=== PATIENT | female | born 1985 | race Caucasian/White ===

== ENCOUNTER 2017-06-23 11:57 | Emergency (ER) | payer SELFPAY ==
[2017-06-23 12:10] VITALS: BP 125/63
--- NOTE | 2017-06-26 09:01 | EDM.PDOC ---
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 She states she is 9 weeks , has not yet seen OB provider. She states LMP was 04/17/17. She states 2 living children, ages 4 and 2, and 2 past miscarriages. She states she has needed to receive Rhogam in the past. She denies fever, chills, N/V/D. Vaginal spotting is minimal, as she noticed on toilet paper when wiping. She denies passing any heavy bleeding or clots. Pt denies any abdominal cramping. Onset: Today, Sudden - Related Data Allergies Allergy/AdvReac Type Severity Reaction Status Date / Time No Known Allergies Allergy Verified 10/12/14 07:34 Home Meds: Home Meds Ferrous Sulfate [Iron] 1 tab PO DAILY 10/12/14 [History] Vit #108/Iron/FA [ One Tablet] 1 tab PO DAILY 10/12/14 [History ] Social & Family History - Tobacco Use Smoking Status *Q: Never Smoker Second Hand Smoke Exposure: No - Alcohol Use Days Per Week of Alcohol Use: 0 - Recreational Drug Use Recreational Drug Use: No ED ROS GENERAL - Review of Systems Review Of Systems: ROS reveals no pertinent complaints other than HPI. ED EXAM - Physical Exam Exam: See Below Exam Limited By: No Limitations General Appearance: Alert, WD/WN, No Apparent Distress Eye Exam: Bilateral Eye: Normal Inspection Ears: Normal External Exam, Hearing Grossly Normal Nose: Normal Inspection Throat/Mouth: Normal Inspection, Normal Voice, No Airway Compromise Head: Atraumatic, Normocephalic Neck: Normal Inspection, Supple, Non-Tender, Full Range of Motion Respiratory/Chest: No Respiratory Distress, Lungs Clear, Normal Breath Sounds, No Accessory Muscle Use, Chest Non-Tender Cardiovascular: Normal Peripheral Pulses, Regular Rate, Rhythm, No Edema, No Gallop, No JVD, No Murmur, No Rub GI/Abdominal Exam: Normal Bowel Sounds, Soft, Non-Tender, No Organomegaly, No Distention, No Abnormal Bruit, No Mass Rectal Exam: Deferred Back Exam: Normal Inspection, Full Range of Motion Extremities: Normal Inspection, Normal Range of Motion, Non-Tender, No Pedal Edema, Normal Capillary Refill Neurological: Alert, Oriented, Normal Cognition, Normal Gait, No Motor/Sensory Deficits Psychiatric: Normal Affect, Normal Mood Skin Exam: Warm, Dry, Intact, Normal Color, No Rash Lymphatic: No Adenopathy Course - Vital Signs Last Recorded V/S: Last Vital Signs Temp 97.8 F 06/23/17 12:09 Pulse 72 06/23/17 12:09 Resp 18 06/23/17 12:09 BP 125/63 06/23/17 12:09 Pulse Ox 100 06/23/17 12:09 - Orders/Labs/Meds Orders: Active Orders 24 hr Category Date Time Status OB Ltd 1 or More Fetus [US] Urgent Exams 06/23/17 13:17 Ordered RH IMMUNE GLOBULIN [BBK] Stat Lab 06/23/17 12:46 Results RHOGAM, MISCARRIAGE [RHIG WORKUP, MISCARRIAGE] [BBK] Lab 06/23/17 12:46 Results Stat Labs: Laboratory Tests 06/23/17 06/23/17 06/23/17 Range/Units 12:12 12:12 12:46 WBC 6.7 (5.0-10.0) 10^3/uL RBC 4.21 (4.2-5.4) 10^6/uL Hgb 12.7 (12.0-16.0) g/dL Hct 37.1 (37.0-47.0) % MCV 88.1 D (80-100) fL MCH 30.2 (27.0-34.0) pg MCHC 34.2 (33.0-35.0) g/dL Plt Count 290 D (150-450) 10^3/uL Neut % (Auto) 69.3 (42.2-75.2) % Lymph % (Auto) 23.3 (20.5-50.1) % Norton % (Auto) 6.4 (2-8) % Eos % (Auto) 0.9 L (1.0-3.0) % Baso % (Auto) 0.1 (0.0-1.0) % HCG, Quant (0-25) mIU/ml Beta HCG, Quant mIU/ml Urine Color Yellow (YELLOW) Urine Appearance Clear (CLEAR) Urine pH 7.0 (5.0-9.0) Ur Specific [place] 1.010 (1.005-1.030) Urine Protein Negative (NEGATIVE) Urine Glucose (UA) Negative (NEGATIVE) Urine Ketones Negative (NEGATIVE) Urine Occult Blood Small H (NEGATIVE) Urine Nitrite Negative (NEGATIVE) Urine Bilirubin Negative (NEGATIVE) Urine Urobilinogen 0.2 (0.2-1.0) mg/dL Ur Leukocyte Esterase Negative (NEGATIVE) Urine RBC 0-5 /HPF Urine WBC 0-5 (0-5/HPF) /HPF Ur Epithelial Cells Rare /HPF Amorphous Sediment Rare (0/HPF) /HPF Urine Bacteria Few (0-FEW/HPF) /HPF Urine HCG, Qual Positive Blood Type (Referred) Rhogam Indicated 06/23/17 06/23/17 Range/Units 12:46 12:46 WBC (5.0-10.0) 10^3/uL RBC (4.2-5.4) 10^6/uL Hgb (12.0-16.0) g/dL Hct (37.0-47.0) % MCV (80-100) fL MCH (27.0-34.0) pg MCHC (33.0-35.0) g/dL Plt Count (150-450) 10^3/uL Neut % (Auto) (42.2-75.2) % Lymph % (Auto) (20.5-50.1) % Norton % (Auto) (2-8) % Eos % (Auto) (1.0-3.0) % Baso % (Auto) (0.0-1.0) % HCG, Quant > 1371 H (0-25) mIU/ml Beta HCG, Quant 01684 mIU/ml Urine Color (YELLOW) Urine Appearance (CLEAR) Urine pH (5.0-9.0) Ur Specific [place] (1.005-1.030) Urine Protein (NEGATIVE) Urine Glucose (UA) (NEGATIVE) Urine Ketones (NEGATIVE) Urine Occult Blood (NEGATIVE) Urine Nitrite (NEGATIVE) Urine Bilirubin (NEGATIVE) Urine Urobilinogen (0.2-1.0) mg/dL Ur Leukocyte Esterase (NEGATIVE) Urine RBC /HPF Urine WBC (0-5/HPF) /HPF Ur Epithelial Cells /HPF Amorphous Sediment (0/HPF) /HPF Urine Bacteria (0-FEW/HPF) /HPF Urine HCG, Qual Blood Type (Referred) A neg Rhogam Indicated Yes Departure - Departure Time of Disposition: 13:57 Disposition: Home, Self-Care 01 Condition: Good Clinical Impression: Incomplete - Discharge Information Instructions: Miscarriage, [id number] Forms: ED Department Discharge Additional Instructions: Follow up with your OB provider Return to the ER if bleeding increases, soaking pads, etc. Return to the ER if fever or any evidence of infection, abdominal pain/ cramping. Drink plenty of water. Rest. - My Orders Last 24 Hours: My Active Orders 06/23/17 12:46 RH IMMUNE GLOBULIN [BBK] Stat RHOGAM, MISCARRIAGE [RHIG WORKUP, MISCARRIAGE] [BBK] Stat 06/23/17 13:17 OB Ltd 1 or More Fetus [US] Urgent - Assessment/Plan Last 24 Hours: My Active Orders 06/23/17 12:46 RH IMMUNE GLOBULIN [BBK] Stat RHOGAM, MISCARRIAGE [RHIG WORKUP, MISCARRIAGE] [BBK] Stat 06/23/17 13:17 OB Ltd 1 or More Fetus [US] Urgent I have read and agree with the documentation that has been completed regarding this visit. By signing this record, I attest that the documentation was completed in my physical presence and is an accurate record of the encounter.
== END 2017-06-23 14:15 | disposition home or self-care (01) ==
LOC: DL.ED 11:57
DX: O03.4 Incomplete spontaneous abortion without complication (principal); Z3A.09 9 weeks gestation of pregnancy; Z79.899 Other long term (current) drug therapy
CPT/HCPCS: 36415; 76815; 76817; 81001; 81025; 84702; 85025; 96372; 99284; J2790; 99283

== ENCOUNTER 2020-06-16 07:07 | Inpatient (IN) | payer SELFPAY ==
--- NOTE | 2020-06-16 01:00 | PCM.LDHP ---
L&D History of Present Illness - General Date of Service: 06/16/20 (Admit H&P) Admit Problem/Dx: Patient Status Order with Admit Dx/Problem 06/16/20 08:00 Patient Status [ADT] Routine Admission Diagnosis/Problem Admission Diagnosis/Problem High risk 06/16/20 00:50 high risk at term with ripening cervix presenting for induction. AMA hx HEELP/gestational thrombocytopenia recurrent SABs Source of Information: Patient, Family, Old Records, Provider, Other (EPIC notes/ episode and notes. ) History Limitations: Reports: No Limitations - History of Present Illness Introduction:: Carly is a delightful 35yo WF @ 38w6d gestation who presents today for induction due to high risk and ripening cervix. She is AMA, hx of gestational thrombocytopenia/HELLP syndrome, thyroid dz, anemia, recurrent SABs X4, baby measuring 97% for weight on screening US. seen in clinic yesterday and induction scheduled. baby has been active. no bleeding or LOF no sx of pre-E. no sx of COVID and no known contacts or travel. see EPIC notes for further details. 3 prior vaginal deliveries. biggest baby 8 08/21# @ 40+3 4 prior SABs Location, : Reports: Uterus - Related Data Allergies/Adverse Reactions: Allergies Allergy/AdvReac Type Severity Reaction Status Date / Time No Known Allergies Allergy Verified 08/07/18 05:45 Home Medications: Home Meds Ferrous Sulfate [Iron] 1 tab PO DAILY 10/12/14 [History] Mv-Mn/Iron/FA/Herbal/Digestive [ One Tablet] 1 tab PO DAILY 10/12/14 [History] Levothyroxine [Sythroid] 100 mcg PO DAILY 08/07/18 [History] Past Medical History HEENT History: Reports: None Cardiovascular History: Reports: None Respiratory History: Reports: None Gastrointestinal History: Reports: None Genitourinary History: Reports: None DEAN OF BOYS History: Reports: , Spontaneous (has seen reproductive endocrinology in past re: recurrent SABs SAB X 4--no D&C, is A negative and received RhoGam. hmb) : 8 Para: 3 LMP (Approximate): Other OB/BYN History: Miscarriage x2 with 4 total losses including very early losses. hmb Musculoskeletal History: Reports: None Neurological History: Reports: None Psychiatric History: Reports: None Endocrine/Metabolic History: Reports: Hypothyroidism Hematologic History: Reports: None Oncologic (Cancer) History: Reports: None Dermatologic History: Reports: None Social & Family History - Family History Family Medical History: Noncontributory OBGYN: Reports: Recurrent Spontaneous - Tobacco Use Tobacco Use Status *Q: Never Tobacco User - Caffeine Use Caffeine Use: Reports: None - Recreational Drug Use Recreational Drug Use: No Drug Use in Last 12 Months: No - Sexual History Sexual History: Reports: Single Partner - Living Situation & Occupation Living situation: Reports: , with Spouse, 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 They have 2 daughters and a son. Expecting their fourth child. Another girl. [id number]) Occupation: Employed H&P Review of Systems - Review of Systems: Review Of Systems: Comprehensive ROS is negative, except as noted in HPI. (no sx of pre-E) L&D Exam - Exam Exam: See Below (obtained ACLR) - OB Specific Fundal Height In cm: 40 Movement: Active Heart Tones: Present Heart Tones per Min: 140 Presentation: Vertex Estimated Weight: 8 - Pablo Score Pablo Score Cervix Position: Midposition Pablo Score Consistency: Soft Pablo Score Effacement: 31-50% Pablo Score Dilation: 1-2 cm Pablo Score 's Station: -2 Pablo Score Total: 6 - Exam General: Alert, Oriented HEENT: Conjunctiva Clear, EACs Clear, EOMI, Hearing Intact, Nares Patent Neck: Supple, Trachea Midline Lungs: Clear to Auscultation, Normal Respiratory Effort Cardiovascular: Regular Rate, Regular Rhythm GI/Abdominal Exam: Normal Bowel Sounds, Soft, Non-Tender, No Abnormal Bruit, Pelvis Stable Rectal Exam: Normal Exam (external only), Deferred Genitourinary: Normal external exam, Normal bimanual exam, Normal speculum exam Back Exam: Normal Inspection, Full Range of Motion Extremities: Normal Inspection, Normal Range of Motion, Non-Tender, No Pedal Edema, Normal Capillary Refill Skin: Warm, Dry, Intact Psychiatric: Alert, Normal Affect, Normal Mood - Patient Data Result Diagrams: 06/16/20 09:12 - Problem List (1) High risk due to recurrent loss SNOMED Code(s): 06597414, 989483703 ICD Code: O26.20 - PREG CARE FOR PATIENT W RECURRENT PREG LOSS, UNSP TRIMESTER Status: Acute Current Visit: No (2) High risk , multigravida of advanced maternal age SNOMED Code(s): 489594482, 141102572 ICD Code: O09.529 - SUPERVISION OF ELDERLY MULTIGRAVIDA, UNSPECIFIED TRIMESTER Status: Acute Current Visit: No (3) High-risk SNOMED Code(s): 68391614 ICD Code: O09.90 - SUPERVISION OF HIGH RISK , UNSP, UNSP TRIMESTER Status: Acute Current Visit: No (4) AMA (advanced maternal age) multigravida 35+ SNOMED Code(s): 770498002 ICD Code: O09.529 - SUPERVISION OF ELDERLY MULTIGRAVIDA, UNSPECIFIED TRIMESTER Status: Acute Current Visit: No (5) Hypothyroid in , antepartum SNOMED Code(s): 092399723 ICD Code: O99.280 - ENDO, NUTRITIONAL AND METAB DISEASES COMP PREG, UNSP TRI; E03.9 - HYPOTHYROIDISM, UNSPECIFIED Status: Acute Current Visit: No (6) Anemia affecting eighth SNOMED Code(s): 58631190 ICD Code: O99.019 - ANEMIA COMPLICATING , UNSPECIFIED TRIMESTER; O09.40 - SUPERVISION OF W GRAND MULTIPARITY, UNSP TRIMESTER Status: Acute Current Visit: No (7) Blood type A- SNOMED Code(s): 145464649 ICD Code: Z67.11 - TYPE A BLOOD, RH NEGATIVE Status: Acute Current Visit: No (8) Group B Streptococcus not isolated SNOMED Code(s): 504956103 ICD Code: [id number] - Status: Acute Current Visit: No (9) History of recurrent miscarriages SNOMED Code(s): 195284596 ICD Code: N96 - RECURRENT LOSS Status: Acute Current Visit: No (10) Intrauterine SNOMED Code(s): 23664629 ICD Code: Z33.1 - STATE, INCIDENTAL Status: Acute Current Visit: No (11) Rubella immune SNOMED Code(s): 663710502 ICD Code: Z78.9 - OTHER SPECIFIED HEALTH STATUS Status: Acute Current Visit: No Problem List Initiated/Reviewed/Updated: Yes Orders Last 24hrs: Active Orders 24 hr Category Date Time Status Patient Status [ADT] Routine ADT 06/16/20 08:00 Ordered Communication Order [RC] ASDIRECTED Care 06/16/20 00:35 Ordered Communication Order [RC] ASDIRECTED Care 06/16/20 00:35 Ordered Communication Order [RC] ASDIRECTED Care 06/16/20 00:35 Ordered Communication Order [RC] ASDIRECTED Care 06/16/20 08:00 Ordered Communication Order [RC] ASDIRECTED Care 06/16/20 08:00 Ordered Communication Order [RC] ASDIRECTED Care 06/16/20 08:00 Ordered Heart Tones [RC] PER UNIT ROUTINE Care 06/16/20 00:35 Ordered Monitoring [RC] PER UNIT ROUTINE Care 06/16/20 08:00 Ordered Non Stress Test [RC] PER UNIT ROUTINE Care 06/16/20 08:00 Ordered Notify Provider Vital Signs OB [RC] ASDIRECTED Care 06/16/20 00:35 Ordered Notify Provider [RC] PRN Care 06/16/20 00:35 Ordered Notify Provider [RC] PRN Care 06/16/20 00:35 Ordered Notify Provider [RC] PRN Care 06/16/20 00:35 Ordered Notify Provider [RC] STAT Care 06/16/20 00:35 Ordered Peripheral IV Care [RC] . DIRECTED Care 06/16/20 08:00 Ordered Pump Management, Intrathecal [RC] ASDIRECTED Care 06/16/20 08:00 Ordered Up ad Olimpia [RC] ASDIRECTED Care 06/16/20 00:35 Ordered Up ad Olimpia [RC] PER UNIT ROUTINE Care 06/16/20 00:35 Ordered Vaginal Exam [RC] PRN Care 06/16/20 00:35 Ordered Vital Signs [RC] PER UNIT ROUTINE Care 06/16/20 00:35 Ordered CBC W/O DIFF,HEMOGRAM [HEME] Routine Lab 06/16/20 08:00 Ordered CORONAVIRUS COVID-19 PCR PHL Stat Lab 06/16/20 00:35 Ordered Acetaminophen [TylenoL] Med 06/16/20 08:00 Ordered 650 mg PO Q4H PRN Acetaminophen [TylenoL] Med 06/16/20 08:00 Ordered 650 mg PO Q4H PRN Carboprost Tromethamine [Hemabate DS] Med 06/16/20 08:00 Ordered 250 mcg IM ASDIRECTED PRN Lactated Ringers @ 125 MLS/HR(1000ml) Med 06/16/20 08:00 Ordered Lactated Ringers [Ringers, Lactated] 1,000 ml IV ASDIRECTED Lactated Ringers [Ringers, Lactated] 1,000 ml Med 06/16/20 08:00 Ordered IV BOLUS Lidocaine 1% [Xylocaine-MPF 1%] Med 06/16/20 08:00 Ordered 30 ml INJECT ASDIRECTED PRN Methylergonovine [Methergine] Med 06/16/20 08:00 Ordered 0.2 mg IM ASDIRECTED PRN Ondansetron [Zofran] Med 06/16/20 08:00 Ordered 4 mg IVPUSH Q4H PRN Oxytocin 30 Units in NS @ 2 MUNITS/MIN(500ml) Med 06/16/20 08:00 Ordered Oxytocin/Normal Saline [Pitocin in NS 30 UNIT/500 ML] 30 unit in 500 ml IV TITRATE Sodium Chloride 0.9% [Saline Flush] Med 06/16/20 08:00 Ordered 10 ml FLUSH ASDIRECTED PRN Tranexamic Acid [Cyklokapron] 1,000 mg Med 06/16/20 08:00 Ordered Sodium Chloride 0.9% [Normal Saline] 100 ml IV ONETIME miSOPROStoL [Cytotec] Med 06/16/20 08:00 Ordered 50 mcg VAG Q4H PRN miSOPROStoL [Cytotec] Med 06/16/20 08:00 Ordered 800 mcg RECTAL ASDIRECTED PRN Peripheral IV Insertion Adult [OM.PC] Urgent Oth 06/16/20 08:00 Ordered Saline Lock Insert [OM.PC] Routine Oth 06/16/20 00:35 Ordered Resuscitation Status Routine Resus Stat 06/16/20 00:34 Ordered Medication Orders Acetaminophen (Tylenol) 650 mg PO Q4H PRN PRN Reason: Pain (Mild 1-3) and fever Acetaminophen (Tylenol) 650 mg PO Q4H PRN PRN Reason: Pain/Fever Carboprost Tromethamine (Hemabate Ds) 250 mcg IM ASDIRECTED PRN PRN Reason: HEMORRHAGE Tranexamic Acid 1,000 mg/ (Sodium Chloride) 110 mls @ 660 mls/hr IV ONETIME PRN PRN Reason: Bleeding Oxytocin/Sodium Chloride (Pitocin In Ns 30 Unit/500 Ml) 30 unit in 500 mls @ 2 mls/hr IV TITRATE YOSVANY; Protocol Lactated Ringer's (Ringers, Lactated) 1,000 mls @ 999 mls/hr IV BOLUS ONE Stop: 06/16/20 09:00 Lactated Ringer's (Ringers, Lactated) 1,000 mls @ 125 mls/hr IV ASDIRECTED YOSVANY Lidocaine HCl (Xylocaine-Mpf 1%) 30 ml INJECT ASDIRECTED PRN PRN Reason: Perineal Repair Methylergonovine Maleate (Methergine) 0.2 mg IM ASDIRECTED PRN PRN Reason: Hemorrhage Misoprostol (Cytotec) 800 mcg RECTAL ASDIRECTED PRN PRN Reason: Hemorrhage Misoprostol (Cytotec) 50 mcg VAG Q4H PRN PRN Reason: cervical ripening Ondansetron HCl (Zofran) 4 mg IVPUSH Q4H PRN PRN Reason: Nausea/Vomiting Sodium Chloride (Saline Flush) 10 ml FLUSH ASDIRECTED PRN PRN Reason: Keep Vein Open Assessment/Plan Comment:: ASsessment: Carly is a delightful 35yo WF @ 38w6d presenting for induction of high risk at term with ripening cervix AMA 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 will have rapid Covid testing NST on admit CBC on admit. If COVID negative, PLT >100, NST reacitve and clinically stable, will place 50mcg Cytotec as discussed in detail @ ACLR yesterday. consider repeat Cytotec 50mcg in 4 hours, or pitocin if/when indicated. AROM when appropriate further management pending her clinical course in labor as discussed in clinic. all questions answered. Dr. Graham also present at discussion and for induction. Carly and Srikanth appear happy with care and plan. hmb COVID negative PLT 192 hgb 11.8 WBC 8.6 NST reactive/reassuring Codi placed 50mcg @ 934 without difficulty. see note. hmb
[2020-06-16] MEDS ORDERED: Lidocaine 1% 30 ML SDV INJECT PRN (08:00)
[2020-06-16] MEDS ORDERED: Sodium Chloride 0.9% 10 ML Syringe FLUSH PRN ×2 (08:00→18:44)
[2020-06-16] MEDS ORDERED: Ondansetron 4 MG/2 ML SDV IVPUSH PRN (08:00)
[2020-06-16] MEDS ORDERED: Tranexamic Acid 1,000 MG in Sodium Chloride 0.9% 100 ML IV PRN ×2 (08:00→18:44)
[2020-06-16] MEDS ORDERED: Misoprostol 400 MCG (4 X 100 MCG TAB) RECTAL PRN ×2 (08:00→18:44)
[2020-06-16] MEDS ORDERED: Lactated Ringers 1,000 ML IV ONE (08:00)
[2020-06-16] MEDS ORDERED: Methylergonovine 0.2 MG/1 ML Amp IM PRN (08:00)
[2020-06-16] MEDS ORDERED: Oxytocin/Normal Saline 30 UNIT/500 ML BAG IV SCH (08:00)
[2020-06-16] MEDS ORDERED: Carboprost Tromethamine 250 MCG/1 ML Amp IM PRN ×2 (08:00→18:44)
[2020-06-16] MEDS ORDERED: Acetaminophen 325 MG Tab PO PRN ×3 (08:00→18:44)
[2020-06-16] MEDS: Misoprostol 50 MCG (1/2 of 100 MCG) Tab VAG PRN ×2 (09:34→13:25)
--- NOTE | 2020-06-16 10:22 | PCM.PNLD ---
Labor Progress Note - VS & Meds Active Medications: Current Medications Acetaminophen (Tylenol) 650 mg PO Q4H PRN PRN Reason: Pain (Mild 1-3) and fever Acetaminophen (Tylenol) 650 mg PO Q4H PRN PRN Reason: Pain/Fever Carboprost Tromethamine (Hemabate Ds) 250 mcg IM ASDIRECTED PRN PRN Reason: HEMORRHAGE Tranexamic Acid 1,000 mg/ (Sodium Chloride) 110 mls @ 660 mls/hr IV ONETIME PRN PRN Reason: Bleeding Oxytocin/Sodium Chloride (Pitocin In Ns 30 Unit/500 Ml) 30 unit in 500 mls @ 2 mls/hr IV TITRATE YOSVANY; Protocol Lactated Ringer's (Ringers, Lactated) 1,000 mls @ 125 mls/hr IV ASDIRECTED YOSVANY Lidocaine HCl (Xylocaine-Mpf 1%) 30 ml INJECT ASDIRECTED PRN PRN Reason: Perineal Repair Methylergonovine Maleate (Methergine) 0.2 mg IM ASDIRECTED PRN PRN Reason: Hemorrhage Misoprostol (Cytotec) 800 mcg RECTAL ASDIRECTED PRN PRN Reason: Hemorrhage Misoprostol (Cytotec) 50 mcg VAG Q4H PRN PRN Reason: cervical ripening Last Admin: 06/16/20 09:34 Dose: 50 mcg Documented by: Ondansetron HCl (Zofran) 4 mg IVPUSH Q4H PRN PRN Reason: Nausea/Vomiting Sodium Chloride (Saline Flush) 10 ml FLUSH ASDIRECTED PRN PRN Reason: Keep Vein Open Discontinued Medications Lactated Ringer's (Ringers, Lactated) 1,000 mls @ 999 mls/hr IV BOLUS ONE Stop: 06/16/20 09:00 - Uterine Contractions Uterine Monitoring Mode: External Brenas Contraction Intensity: Mild Uterine Resting Tone: Soft - Monitoring Strip Review: Category I - Vaginal Exam Dilation (cm): 1.5 Effacement (Percent): 25 Station: -2 Cervical Position: Posterior - Labor Progress (Free Text) Labor Progress: Initial exam unchanged from clinic visit Will continue with cytotec induction 50mcg cytotec placed vaginally will recheck in 4 hours sooner if needed. Nita Badillo MD
--- NOTE | 2020-06-16 13:34 | PCM.SN.2 ---
- Free Text/Narrative Note: 06-16-2020 1879 tracing Cat 1 reassuring cxns every 2-5 minutes, she is just starting to feel them, ranking about 3 on the pain scale baby active. no LOF or bleeding. no new complaints or concerns. appears very comfortable reviewed labs and plan cervix midposterior position, 2cm, 50% BOWI, vertex not much change. placed 2nd dose of cytotec. plan for AROM when able. pitocin if needed further management pending her clinical course. all questions answered. they appear happy with excellent care of our fine OB nurses b
[2020-06-16] MEDS: Lactated Ringers 1,000 ML IV SCH ×3 (16:00→17:26)
--- NOTE | 2020-06-16 16:21 | PCM.SN.2 ---
- Free Text/Narrative Note: DOS: 06-16-[address] Graham without complication cervix now 4cm, 75%, vertex -1 with cxn cxns more frequent and stronger. Carly requesting intrathecal. tracing reassuring. anesthesia notified. will continue to monitor closely will set up for anticipated vaginal delivery. b
[2020-06-16] MEDS ORDERED: fentaNYL 100 MCG/2 ML SDV ONE (16:29)
[2020-06-16] MEDS ORDERED: EPINEPHrine 1 MG/1 ML Amp ONE (16:29)
[2020-06-16] MEDS ORDERED: Sodium Bicarbonate 4.2% 2.5 MEQ/5 ML SDV ONE (16:30)
--- NOTE | 2020-06-16 16:58 | PCM.SN.2 ---
- Free Text/Narrative Note: Intrathecal. Sitting position, sterile prep and drape. 1% LIDOCAINE W BICARB FOR SKINWHEAL TO L3 L4 INTERSPACE. INTRODUCER, 24 GA PENCAN X 2. No CSF, Lidocaine to L2 L3 interspace, 24 ga Pencan x 1. POS csf, NEG HEME, NEG PARASTHESIA. 1:1000 PF EPI WASH, 20 MCG PF SUFENTA, 30 MCG PF FENTANYL, 0.4 ML PF NS AND 6 MG OF 0.75% PF MARCAINE INJECTED AFTER CSF ASPIRATION. PT TO L LATERAL POSITION. PROCEDURE TIME 1630 to 1700
--- NOTE | 2020-06-16 18:16 | PCM.DEL ---
L & D Note - General Info Date of Service: 06/16/20 Mother's Due Date: 06/24/20 - Delivery Note Labor: Spontaneous Cervical Ripening Method: Misoprostil Delivery Outcome: Livebirth Delivery Method: Spontaneous Vaginal Delivery-Single Infant Delivery Mode: Spontaneous Presentation: Right Occiput Anterior (GUNNAR) Nuchal Cord: None (funic cord) Anesthesia Type: Intrathecal Amniotic Fluid Description: Clear Episiotomy Type: None Laceration: None Placenta: Intact, Spontaneous Cord: 3 Vessels Estimated Blood Loss: 100 : Bulb Syringe, Stimulated, Warmed Score 1 min: 7 Score 5 min: 9 Delivery Comments (Free Text/Narrative):: Patient presented for induction of labor. Induction initiated with 50mcg of cytotec this dose was repeated once. AROM at 4cm with clear fluid. She progressed to complete without complication. Spontaneous delivery of the head, funic cord and posterior hand (left) noted at the chin. Rest of body delivered without complication. Viable girl apgars 7 and 9. Placenta delivered shortly thereafter intact with a three vessel cord. Delivery over intact perineum. - General Info Date of Service: 06/16/20 Admission Dx/Problem (Free Text): Patient Status Order with Admit Dx/Problem 06/16/20 08:00 Patient Status [ADT] Routine Admission Diagnosis/Problem Admission Diagnosis/Problem High risk 06/16/20 00:50 high risk at term with ripening cervix presenting for induction. AMA hx HEELP/gestational thrombocytopenia recurrent SABs Functional Status: Reports: Pain Controlled - Review of Systems General: Reports: No Symptoms HEENT: Reports: No Symptoms Pulmonary: Reports: No Symptoms Cardiovascular: Reports: No Symptoms Gastrointestinal: Reports: No Symptoms Genitourinary: Reports: No Symptoms Musculoskeletal: Reports: No Symptoms Skin: Reports: No Symptoms Neurological: Reports: No Symptoms Psychiatric: Reports: No Symptoms - Patient Data Lab Results Last 24 Hours: Laboratory Results - last 24 hr 06/16/20 06/16/20 Range/Units 08:25 09:12 WBC 8.0 (5.0-10.0) 10^3/uL RBC 3.85 L (4.2-5.4) 10^6/uL Hgb 11.8 L (12.0-16.0) g/dL Hct 34.7 L (37.0-47.0) % MCV 90.1 (80-100) fL MCH 30.6 (27.0-34.0) pg MCHC 34.0 (33.0-35.0) g/dL Plt Count 192 (150-450) 10^3/uL SARS CoV-2 RNA Rapid SWATI Negative (NEGATIVE) Med Orders - Current: Current Medications Acetaminophen (Tylenol) 650 mg PO Q4H PRN PRN Reason: Pain (Mild 1-3) and fever Acetaminophen (Tylenol) 650 mg PO Q4H PRN PRN Reason: Pain/Fever Carboprost Tromethamine (Hemabate Ds) 250 mcg IM ASDIRECTED PRN PRN Reason: HEMORRHAGE Tranexamic Acid 1,000 mg/ (Sodium Chloride) 110 mls @ 660 mls/hr IV ONETIME PRN PRN Reason: Bleeding Oxytocin/Sodium Chloride (Pitocin In Ns 30 Unit/500 Ml) 30 unit in 500 mls @ 2 mls/hr IV TITRATE YOSVANY; Protocol Lactated Ringer's (Ringers, Lactated) 1,000 mls @ 125 mls/hr IV ASDIRECTED YOSVANY Last Admin: 06/16/20 17:26 Dose: 125 mls/hr Documented by: Lidocaine HCl (Xylocaine-Mpf 1%) 30 ml INJECT ASDIRECTED PRN PRN Reason: Perineal Repair Methylergonovine Maleate (Methergine) 0.2 mg IM ASDIRECTED PRN PRN Reason: Hemorrhage Misoprostol (Cytotec) 800 mcg RECTAL ASDIRECTED PRN PRN Reason: Hemorrhage Misoprostol (Cytotec) 50 mcg VAG Q4H PRN PRN Reason: cervical ripening Last Admin: 06/16/20 13:25 Dose: 50 mcg Documented by: Ondansetron HCl (Zofran) 4 mg IVPUSH Q4H PRN PRN Reason: Nausea/Vomiting Last Admin: 06/16/20 16:07 Dose: 4 mg Documented by: Sodium Chloride (Saline Flush) 10 ml FLUSH ASDIRECTED PRN PRN Reason: Keep Vein Open Last Admin: 06/16/20 17:20 Dose: 10 ml Documented by: Discontinued Medications Epinephrine HCl (Adrenalin) Confirm Administered Dose 1 mg .ROUTE .STK-MED ONE Stop: 06/16/20 16:30 Fentanyl (Sublimaze) Confirm Administered Dose 100 mcg .ROUTE .STK-MED ONE Stop: 06/16/20 16:30 Lactated Ringer's (Ringers, Lactated) 1,000 mls @ 999 mls/hr IV BOLUS ONE Stop: 06/16/20 09:00 Sodium Bicarbonate (Sodium Bicarbonate 4.2%) Confirm Administered Dose 2.5 meq .ROUTE .STK-MED ONE Stop: 06/16/20 16:31 Sufentanil Citrate (Sufenta) Confirm Administered Dose 50 mcg .ROUTE .STK-MED ONE Stop: 06/16/20 16:31 - Exam General: Alert, Oriented Skin: Other (post inflammatory pigmentation in the mid spine, likely related to tic bite with history of allergies to tic bites ) - Problem List & Annotations (1) (normal spontaneous vaginal delivery) SNOMED Code(s): 07382666, 928008998 Code(s): O80 - ENCOUNTER FOR FULL-TERM UNCOMPLICATED DELIVERY Status: Acute Current Visit: Yes (2) AMA (advanced maternal age) multigravida 35+ SNOMED Code(s): 463856119 Code(s): O09.529 - SUPERVISION OF ELDERLY MULTIGRAVIDA, UNSPECIFIED TRIMESTER Status: Acute Current Visit: No (3) Blood type A- SNOMED Code(s): 028664308 Code(s): Z67.11 - TYPE A BLOOD, RH NEGATIVE Status: Acute Current Visit: No (4) RhD negative SNOMED Code(s): 541659715 Code(s): Z67.91 - UNSPECIFIED BLOOD TYPE, RH NEGATIVE Status: Acute Current Visit: No (5) Rubella immune SNOMED Code(s): 963384897 Code(s): Z78.9 - OTHER SPECIFIED HEALTH STATUS Status: Acute Current Visit: No - Problem List Review Problem List Initiated/Reviewed/Updated: Yes - Assessment Assessment:: PPD0 no complications - Plan Plan:: ASsessment: Carly is a delightful 35yo WF @ 38w6d presenting for induction of high risk at term with ripening cervix AMA 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 will have rapid Covid testing NST on admit CBC on admit. If COVID negative, PLT >100, NST reacitve and clinically stable, will place 50mcg Cytotec as discussed in detail @ [facility] yesterday. consider repeat Cytotec 50mcg in 4 hours, or pitocin if/when indicated. AROM when appropriate further management pending her clinical course in labor as discussed in clinic. all questions answered. Dr. Graham also present at discussion and for induction. Carly and Srikanth appear happy with care and plan. hmb COVID negative PLT 192 hgb 11.8 WBC 8.6 NST reactive/reassuring Codi placed 50mcg @ 934 without difficulty. see note. hmb UPDATE viable girl at 1755 Plan: 1. begin routine post cares per unit protocol 2. will check cord blood for need for RhoPhylac Nita Graham MD
[2020-06-16] MEDS ORDERED: Benzocaine/Menthol 20%-0.5% Spray 56 GM Canister TOP PRN (18:44)
[2020-06-16] MEDS ORDERED: Ibuprofen 800 MG Tab PO PRN (18:44)
[2020-06-16] MEDS ORDERED: Docusate Sodium 100 MG Cap PO PRN (18:44)
[2020-06-16] MEDS ORDERED: Simethicone 80 MG Tab.Chew PO PRN (19:00)
[2020-06-17 08:51] VITALS: BP 104/57; PULSE 63
--- NOTE | 2020-06-17 09:47 | PCM.DCSUM1 ---
Discharge Summary - Hospital Course Free Text/Narrative:: Obstetrics Progress Note Post Day Number 1 Patient: Carly Liu Admit Date: 06/16/2020 Today's Date: 06/17/2020 Subjective: Carly is day 1 s/p . She reports her lochia is mild . She Is . She has well controlled pain with OTC analgesia. She has been advancing her diet and has good PO intake. Patient denies nausea or vomiting. Patient has been urinating spontaneously. She has not had a bowel movement. She has been ambulating. She no acute concerns. No acute events overnight. Objective: Vitals reviewed General: alert, in no acute distress Lungs: clear to auscultation bilaterally Heart: regular rate and rhythm, normal S1 S2, no murmurs Abdomen: soft, nontender, nondistended, bowel sounds present Uterus: Firm, nontender at 1 cm below the umbilicus. Lower extremities have ivon edema. Skin: is warm and dry, well perfused no visible lesions Diagnosis: Stroke: No Modified Wendy Scale: No Symptoms at All Modified Wendy Scale Score: 0 - Discharge Data Discharge Date: 06/17/20 Discharge Disposition: Home, Self-Care 01 Condition: Good - Referral to Home Health Primary Care Physician: CHAVO Ashraf - Discharge Diagnosis/Problem(s) (1) (normal spontaneous vaginal delivery) SNOMED Code(s): 40557367, 982580297 ICD Code: O80 - ENCOUNTER FOR FULL-TERM UNCOMPLICATED DELIVERY Status: Acute Current Visit: Yes (2) AMA (advanced maternal age) multigravida 35+ SNOMED Code(s): 031187659 ICD Code: O09.529 - SUPERVISION OF ELDERLY MULTIGRAVIDA, UNSPECIFIED TRIMESTER Status: Acute Current Visit: No (3) Blood type A- SNOMED Code(s): 792875140 ICD Code: Z67.11 - TYPE A BLOOD, RH NEGATIVE Status: Acute Current Visit: No (4) RhD negative SNOMED Code(s): 660733442 ICD Code: Z67.91 - UNSPECIFIED BLOOD TYPE, RH NEGATIVE Status: Acute Current Visit: No (5) Rubella immune SNOMED Code(s): 692750676 ICD Code: Z78.9 - OTHER SPECIFIED HEALTH STATUS Status: Acute Current Visit: No - Patient Instructions Diet: Regular Diet as Tolerated Activity: Apply Ice, As Tolerated (PELVIC REST) Driving: May Drive Today Showering/Bathing: May Shower Notify Provider of: Fever, Increased Pain, Swelling and Redness, Drainage, Nausea and/or Vomiting - Discharge Plan *PRESCRIPTION DRUG MONITORING PROGRAM REVIEWED*: Yes *COPY OF PRESCRIPTION DRUG MONITORING REPORT IN PATIENT NIRMAL: Yes Home Medications: Home Meds Ferrous Sulfate [Iron] 1 tab PO DAILY 10/12/14 [History] Mv-Mn/Iron/FA/Herbal/Digestive [ One Tablet] 1 tab PO DAILY 10/12/14 [History] Levothyroxine [Sythroid] 100 mcg PO DAILY 08/07/18 [History] Oxygen Therapy Mode: Room Air - Discharge Summary/Plan Comment DC Time >30 min.: Yes Discharge Summary/Plan Comment: Plan: Encourage ambulation. Advance diet as tolerated. Continue with advancing routine post cares. Plan for discharge today. Nita Graham MD Line Construction Superintendent PGY3 Pager [phone] - General Info Date of Service: 06/17/20 Admission Dx/Problem (Free Text: Patient Status Order with Admit Dx/Problem 06/16/20 08:00 Patient Status [ADT] Routine Admission Diagnosis/Problem Admission Diagnosis/Problem High risk 06/16/20 00:50 high risk at term with ripening cervix presenting for induction. AMA hx HEELP/gestational thrombocytopenia recurrent SABs Functional Status: Reports: Pain Controlled - Review of Systems General: Reports: No Symptoms HEENT: Reports: No Symptoms Pulmonary: Reports: No Symptoms Cardiovascular: Reports: No Symptoms Gastrointestinal: Reports: No Symptoms Genitourinary: Reports: No Symptoms Musculoskeletal: Reports: No Symptoms Skin: Reports: No Symptoms Neurological: Reports: No Symptoms Psychiatric: Reports: No Symptoms - Patient Data Vitals - Most Recent: Last Vital Signs Temp 99.6 F 06/17/20 08:00 Pulse 63 06/17/20 08:00 Resp 16 06/17/20 08:00 BP 104/57 L 06/17/20 08:00 Pulse Ox 100 06/16/20 17:47 Weight - Most Recent: 170 lb I&O - Last 24 hours: Intake & Output 06/16/20 06/17/20 06/17/20 22:59 06:59 14:59 Intake Total 2500 Output Total 250 700 Balance 2250 -700 Med Orders - Current: Current Medications Acetaminophen (Tylenol) 650 mg PO Q4H PRN PRN Reason: Pain (Mild 1-3) and fever Acetaminophen (Tylenol) 650 mg PO Q4H PRN PRN Reason: Pain/Fever Acetaminophen (Tylenol) 650 mg PO Q6H PRN PRN Reason: mild pain or fever Benzocaine/Menthol (Dermoplast Pain Relief [place]) 0 gm TOP Q4H PRN PRN Reason: Perineal comfort measures Carboprost Tromethamine (Hemabate Ds) 250 mcg IM ASDIRECTED PRN PRN Reason: HEMORRHAGE Carboprost Tromethamine (Hemabate Ds) 250 mcg IM ASDIRECTED PRN PRN Reason: Excessive vaginal bleeding Docusate Sodium (Colace) 100 mg PO BID PRN PRN Reason: Constipation Tranexamic Acid 1,000 mg/ (Sodium Chloride) 110 mls @ 660 mls/hr IV ONETIME PRN PRN Reason: Bleeding Oxytocin/Sodium Chloride (Pitocin In Ns 30 Unit/500 Ml) 30 unit in 500 mls @ 2 mls/hr IV TITRATE YOSVANY; Protocol Last Titration: 06/16/20 20:40 Dose: 0 munits/min, 0 mls/hr Documented by: Lactated Ringer's (Ringers, Lactated) 1,000 mls @ 125 mls/hr IV ASDIRECTED YOSVANY Last Admin: 06/16/20 17:26 Dose: 125 mls/hr Documented by: Tranexamic Acid 1,000 mg/ (Sodium Chloride) 110 mls @ 660 mls/hr IV ONETIME PRN PRN Reason: Bleeding Ibuprofen (Motrin) 800 mg PO Q8H PRN PRN Reason: Mild Pain or Fever Lidocaine HCl (Xylocaine-Mpf 1%) 30 ml INJECT ASDIRECTED PRN PRN Reason: Perineal Repair Methylergonovine Maleate (Methergine) 0.2 mg IM ASDIRECTED PRN PRN Reason: Hemorrhage Misoprostol (Cytotec) 800 mcg RECTAL ASDIRECTED PRN PRN Reason: Hemorrhage Misoprostol (Cytotec) 50 mcg VAG Q4H PRN PRN Reason: cervical ripening Last Admin: 06/16/20 13:25 Dose: 50 mcg Documented by: Misoprostol (Cytotec) 800 mcg RECTAL ONETIME PRN PRN Reason: Hemorrhage Ondansetron HCl (Zofran) 4 mg IVPUSH Q4H PRN PRN Reason: Nausea/Vomiting Last Admin: 06/16/20 16:07 Dose: 4 mg Documented by: Simethicone (Simethicone) 80 mg PO Q4H PRN PRN Reason: Gas Sodium Chloride (Saline Flush) 10 ml FLUSH ASDIRECTED PRN PRN Reason: Keep Vein Open Last Admin: 06/16/20 17:20 Dose: 10 ml Documented by: Sodium Chloride (Saline Flush) 10 ml FLUSH ASDIRECTED PRN PRN Reason: Keep Vein Open Discontinued Medications Epinephrine HCl (Adrenalin) Confirm Administered Dose 1 mg .ROUTE .STK-MED ONE Stop: 06/16/20 16:30 Last Admin: 06/17/20 07:23 Dose: Not Given Documented by: Fentanyl (Sublimaze) Confirm Administered Dose 100 mcg .ROUTE .STK-MED ONE Stop: 06/16/20 16:30 Last Admin: 06/17/20 07:23 Dose: Not Given Documented by: Lactated Ringer's (Ringers, Lactated) 1,000 mls @ 999 mls/hr IV BOLUS ONE Stop: 06/16/20 09:00 Last Admin: 06/17/20 02:08 Dose: Not Given Documented by: Sodium Bicarbonate (Sodium Bicarbonate 4.2%) Confirm Administered Dose 2.5 meq .ROUTE .STK-MED ONE Stop: 06/16/20 16:31 Last Admin: 06/17/20 07:23 Dose: Not Given Documented by: Sufentanil Citrate (Sufenta) Confirm Administered Dose 50 mcg .ROUTE .STK-MED ONE Stop: 06/16/20 16:31 Last Admin: 06/17/20 07:23 Dose: Not Given Documented by: - Exam General: Reports: Alert, Oriented HEENT: Reports: Pupils Equal, Pupils Reactive, EOMI, Mucous Membr. Moist/[place]ck: Reports: Supple Lungs: Reports: Clear to Auscultation, Normal Respiratory Effort Cardiovascular: Reports: Regular Rate, Regular Rhythm GI/Abdominal Exam: Normal Bowel Sounds, Soft, Non-Tender, No Organomegaly, No Distention, No Abnormal Bruit, No Mass, Pelvis Stable Rectal (Female) Exam: Normal Exam, Normal Rectal Tone Back Exam: Reports: Normal Inspection, Full Range of Motion Extremities: Normal Inspection, Normal Range of Motion, Non-Tender, No Pedal Edema, Normal Capillary Refill Skin: Reports: Warm, Dry, Intact Wound/Incisions: Reports: Healing Well Neurological: Reports: No New Focal Deficit Psy/Mental Status: Reports: Alert, Normal Affect, Normal Mood
== END 2020-06-17 18:50 | disposition home or self-care (01) | DRG 807 ==
LOC: DL.OB 08:11 → OBSVTOIN 17:55
PROVIDERS: ADMIT Family Medicine; ATTEND Family Medicine
PROC: 10E0XZZ Delivery of Products of Conception, External Approach (ICD-10-PCS; principal; 2020-06-16)
PROC: 3E0P7VZ Introduction of Hormone into Female Reproductive, Via Natural or Artificial Opening (ICD-10-PCS; 2020-06-16)
PROC: 10907ZC Drainage of Amniotic Fluid, Therapeutic from Products of Conception, Via Natural or Artificial Opening (ICD-10-PCS; 2020-06-16)
DX: O99.284 Endocrine, nutritional and metabolic diseases complicating childbirth (principal); Z37.0 Single live birth; E03.9 Hypothyroidism, unspecified; Z3A.38 38 weeks gestation of pregnancy; O99.02 Anemia complicating childbirth; D64.9 Anemia, unspecified; Z20.828 Contact with and (suspected) exposure to other viral communicable diseases
CPT/HCPCS: 36415; 36430; 59025; 59409; 85027; 85461; 86850; 86870; 86900; 86901; A9270-GY; J2405; J2590; J2790; J7120; U0002

== ENCOUNTER 2022-09-25 00:14 | Inpatient (IN) | payer SELFPAY ==
[~2022-09-25 00:14] MED LIST: Acetaminophen 325 MG Tab PO PRN; Carboprost Tromethamine 250 MCG/1 ML Amp IM PRN; Famotidine 20 MG/2 ML SDV IVPUSH PRN; Lactated Ringers 1,000 ML IV ONE; Lactated Ringers 500 ML IV SCH; Lidocaine 1% 30 ML SDV INJECT PRN; Methylergonovine 0.2 MG/1 ML Amp IM PRN; Misoprostol 400 MCG (4 X 100 MCG TAB) RECTAL PRN; Nalbuphine 20 MG/1 ML Amp IM PRN; Naloxone 2 MG/2 ML Syringe IVPUSH PRN; Ondansetron 4 MG/2 ML SDV IVPUSH PRN; Oxytocin/Normal Saline 30 UNIT/500 ML BAG IV SCH; Promethazine 25 MG/ML SDV IM PRN; Sodium Chloride 0.9% 10 ML Syringe FLUSH PRN; Tranexamic Acid 1,000 MG in Sodium Chloride 0.9% 100 ML IV PRN; ePHEDrine 50 MG/ML SDV IVPUSH PRN; fentaNYL 100 MCG/2 ML SDV IVPUSH PRN
[2022-09-25] MEDS: Misoprostol 25 MCG (1/4 of 100 MCG) Tab PO PRN ×2 (01:03→05:06)
[2022-09-25] MEDS: Misoprostol 25 MCG (1/4 of 100 MCG) Tab VAG PRN ×2 (01:03→05:06)
[2022-09-25] MEDS: Lactated Ringers 1,000 ML IV SCH ×3 (07:27→14:20)
[2022-09-25] MEDS: Sodium Chloride 0.9% 10 ML Syringe FLUSH SCH ×2 (09:29→17:52)
[2022-09-25] MEDS ORDERED: Sodium Bicarbonate 4.2% 2.5 MEQ/5 ML SDV ONE (10:28)
[2022-09-25] MEDS ORDERED: EPINEPHrine 1 MG/ML SDV ONE (10:28)
[2022-09-25] MEDS ORDERED: Dexmedetomidine 200 MCG/2 ML SDV ONE (10:28)
[2022-09-25] MEDS ORDERED: Morphine PF 10 MG/10 ML SDV ONE (10:31)
[2022-09-25] MEDS: Oxytocin/Normal Saline 30 UNIT/500 ML BAG IV SCH ×2 (11:26→14:50)
[2022-09-25] MEDS ORDERED: ePHEDrine 50 MG/ML SDV IVPUSH PRN (11:38)
[2022-09-25] MEDS ORDERED: Simethicone 80 MG Tab.Chew PO PRN (12:21)
[2022-09-25] MEDS ORDERED: Ibuprofen 800 MG Tab PO PRN (12:21)
[2022-09-25] MEDS ORDERED: Sodium Chloride 0.9% 10 ML Syringe FLUSH PRN (12:21)
[2022-09-25] MEDS ORDERED: Oxytocin 10 Units/1 ML SDV IM PRN (12:21)
[2022-09-25] MEDS ORDERED: Docusate Sodium 100 MG Cap PO PRN (12:21)
[2022-09-25] MEDS ORDERED: Tranexamic Acid 1,000 MG in Sodium Chloride 0.9% 100 ML IV PRN (12:21)
[2022-09-25] MEDS ORDERED: Acetaminophen 325 MG Tab PO PRN (12:21)
[2022-09-25] MEDS ORDERED: Carboprost Tromethamine 250 MCG/1 ML Amp IM PRN (12:21)
[2022-09-25] MEDS ORDERED: Benzocaine/Menthol 20%-0.5% Spray 78 GM Cannister TOP PRN (12:21)
[2022-09-25] MEDS ORDERED: Misoprostol 400 MCG (4 X 100 MCG TAB) RECTAL PRN (12:21)
[2022-09-25 22:04] VITALS: PULSE 57
[2022-09-26 08:26] VITALS: BP 110/73
[2022-09-26] MEDS ORDERED: Prenatal Multivitamin with Calcium/Folic Acid/Iron Tab PO SCH (09:00)
== END 2022-09-26 16:30 | disposition home or self-care (01) | DRG 807 ==
LOC: UNDOADMOB 00:14 → DL.OB 00:14 → OBSVTOIN 12:10 → INTOOBSV 12:10 → DL.MS 15:58 → OBSVTOIN 15:58 → DL.OB 15:58 → UNDOADMOB 15:58
PROVIDERS: ADMIT Family Medicine; ATTEND Family Medicine
PROC: 10E0XZZ Delivery of Products of Conception, External Approach (ICD-10-PCS; principal; 2022-09-25)
PROC: 3E0334Z Introduction of Serum, Toxoid and Vaccine into Peripheral Vein, Percutaneous Approach (ICD-10-PCS; 2022-09-25)
PROC: 3E033VJ Introduction of Other Hormone into Peripheral Vein, Percutaneous Approach (ICD-10-PCS; 2022-09-25)
DX: O99.02 Anemia complicating childbirth (principal); Z37.0 Single live birth; Z3A.39 39 weeks gestation of pregnancy; O99.284 Endocrine, nutritional and metabolic diseases complicating childbirth; O14.24 HELLP syndrome, complicating childbirth; D64.9 Anemia, unspecified; E03.9 Hypothyroidism, unspecified; Z20.822 Contact with and (suspected) exposure to COVID-19; O69.81X0 Labor and delivery complicated by cord around neck, without compression, not applicable or unspecified; Z29.13 Encounter for prophylactic Rho(D) immune globulin
CPT/HCPCS: 01967; 36415; 59409; 85027; 86850; 86900; 86901; A9270-GY; J2405; J2590; J2790; J7120; U0002

== ENCOUNTER 2025-05-01 04:21 | Emergency (ER) | payer SELFPAY ==
[2025-05-01] MEDS: Ketorolac 30 MG/ML SDV IM ONE (05:04)
[2025-05-01 05:06] LABS: BASOPHILS PERCENT AUTO 0.1 % (0.0-1.0); EOSINOPHILS PERCENT AUTO 0.1 % (1.0-3.0); LYMPHOCYTES PERCENT AUTO 5.9 % (20.5-50.1); MONOCYTES PERCENT AUTO 4.3 % (2-8); NEUTROPHILS PERCENT AUTO 89.6 % (42.2-75.2); PLATELET COUNT,PLT 270 10^3/uL (150-450); RED BLOOD CELL COUNT 3.66 10^6/uL (4.2-5.4); WHITE BLOOD CELL COUNT,WBC 19.2 10^3/uL (5.0-10.0)
[2025-05-01] MEDS: Iopamidol 612 MG/ML 100 ML Bottle IVPUSH ONE (05:23)
[2025-05-01 05:28] LABS: A/G RATIO 0.9; ALANINE AMINOTRANSFERASE,ALT 17.0 U/L (14-59); ASPARTATE AMNIOTRANSFERASE,AST 12.0 U/L (15-37); BILIRUBIN TOTAL 0.6 mg/dL (0.2-1.0); BLOOD UREA NITROGEN,BUN 10.0 mg/dL (7-18); CARBON DIOXIDE,CO2 28.0 mmol/L (21-32); CHLORIDE,CL 99.0 mmol/L (98-107); CREATININE 0.82 mg/dL (0.55-1.02); EST CRCL DRUG DOSING (CG) 95.31 mL/min; GLUCOSE RANDOM 152.0 mg/dL (70-99); POTASSIUM,K 4.1 mmol/L (3.5-5.1); PROTEIN TOTAL,TP 7.6 g/dL (6.4-8.2); SODIUM,NA 133.0 mmol/L (136-145)
[2025-05-01 05:30] LABS: ESTIMATED GFR 93.0 mL/min (>=60)
[2025-05-01] MEDS ORDERED: Ondansetron 4 MG/2 ML SDV ONE (05:43)
[2025-05-01] MEDS: Ondansetron 4 MG/2 ML SDV IVPUSH ONE (05:46)
[2025-05-01 07:43] VITALS: BP 103/66; PULSE 65
[2025-05-01 07:55] LABS: APPEARANCE,URINE CLEAR (CLEAR); GLUCOSE,URINE NEGATIVE (NEGATIVE); OCCULT BLOOD,URINE TRACE-INTACT (NEGATIVE)
[2025-05-01 08:44] LABS: EPITHELIAL CELLS,URINE RARE /HPF (NOT SEEN)
== END 2025-05-01 08:37 ==
LOC: DL.ED 04:21
DX: K66.1 Hemoperitoneum (principal); D72.829 Elevated white blood cell count, unspecified; E03.9 Hypothyroidism, unspecified; Z79.890 Hormone replacement therapy; Z79.899 Other long term (current) drug therapy
CPT/HCPCS: 36415; 74018; 74177; 80053; 81001; 83690; 84702; 85025; 86850; 86900; 86901; 96372; 96374; 96375; 99285; J1885; J2405; Q9967; J1171